=== PATIENT | female | born 1990 | race Caucasian/White ===

== ENCOUNTER → 2021-02-26 | Outpatient (CLI) | payer OTHER | END | disposition home or self-care (01) | LOC: PRENATAL 15:29 | PROVIDERS: ATTEND Obstetrics & Gynecology Maternal & Fetal Medicine | DX: O35.0XX1 Maternal care for (suspected) central nervous system malformation in fetus, fetus 1 (principal); O35.3XX1 Maternal care for (suspected) damage to fetus from viral disease in mother, fetus 1; O98.512 Other viral diseases complicating pregnancy, second trimester; Z36.89 Encounter for other specified antenatal screening; Z3A.22 22 weeks gestation of pregnancy ==

== ENCOUNTER → 2022-05-01 | Emergency (ER) | payer OTHER ==
[~2022-05-01] VITALS: Ht 165.1 cm; Wt 62.6 kg
== END | disposition home or self-care (01) ==
LOC: ER 14:32
DX: S83.32XA Tear of articular cartilage of left knee, current, initial encounter (principal); Y93.01 Activity, walking, marching and hiking; Y93.9 Activity, unspecified; Y92.9 Unspecified place or not applicable; W19.XXXA Unspecified fall, initial encounter; Z88.6 Allergy status to analgesic agent